=== PATIENT | female | born 1985 | race Caucasian/White ===

== ENCOUNTER 2024-08-03 10:46 | Emergency (ER) | payer SELFPAY ==
[2024-08-03] MEDS: Acetaminophen 500 MG Tab PO ONE (11:00)
[2024-08-03] MEDS: Ketorolac 30 MG/ML SDV IM ONE (11:01)
[2024-08-03] MEDS: Lidocaine 2% Viscous Solution 15 ML UD PO ONE (11:02)
[2024-08-03] MEDS: Benzocaine 20% Topical Spray UD MUCMEM ONE (11:02)
== END 2024-08-03 11:16 | disposition home or self-care (01) ==
LOC: MW.ED 10:46
DX: K02.9 Dental caries, unspecified (principal)
CPT/HCPCS: 96372; 99282; A9270; J1885; 99283

== ENCOUNTER 2025-01-15 23:26 | Emergency (ER) | payer SELFPAY ==
[2025-01-16] MEDS: Benzocaine 20% Topical Spray UD MUCMEM ONE (00:27)
[2025-01-16] MEDS: Lidocaine 2% Viscous Solution 15 ML UD PO ONE (00:27)
[2025-01-16] MEDS: Ketorolac 30 MG/ML SDV IM ONE (00:27)
== END 2025-01-16 00:39 | disposition home or self-care (01) ==
LOC: MW.ED 23:26
DX: K02.9 Dental caries, unspecified (principal); K08.89 Other specified disorders of teeth and supporting structures
CPT/HCPCS: 96372; 99282; A9270; J1885; J3490